=== PATIENT | female | born 1965 | race Caucasian/White ===

== ENCOUNTER 2021-04-12 08:36 | Day surgery (SDC) | payer BC ==
[2021-04-08 11:26] VITALS: BMI 39.8
[2021-04-12] MEDS ORDERED: LIDOCAINE HCL/PF 2% SDV 5ML VIAL ONE (10:51)
[2021-04-12] MEDS ORDERED: PROPOFOL 20 ML ONE ×3 (10:51)
[2021-04-12 11:44] VITALS: TEMP 98.3
[2021-04-12 11:46] VITALS: BP 124/82; PULSE 72
== END 2021-04-12 12:20 | disposition home or self-care (01) ==
LOC: FASU-ENDO 08:36
PROVIDERS: ATTEND Internal Medicine Gastroenterology
PROC: 0DB98ZX Excision of Duodenum, Via Natural or Artificial Opening Endoscopic, Diagnostic (ICD-10-PCS; 2021-04-12)
PROC: 0DB68ZX Excision of Stomach, Via Natural or Artificial Opening Endoscopic, Diagnostic (ICD-10-PCS; 2021-04-12)
PROC: 0DJD8ZZ Inspection of Lower Intestinal Tract, Via Natural or Artificial Opening Endoscopic (ICD-10-PCS; principal; 2021-04-12 10:43)
DX: Z12.11 Encounter for screening for malignant neoplasm of colon (principal); K57.30 Diverticulosis of large intestine without perforation or abscess without bleeding; K29.50 Unspecified chronic gastritis without bleeding; R12 Heartburn
CPT/HCPCS: 84703; 88305-TC; 88342-TC

== ENCOUNTER 2021-12-09 15:46 | Emergency (ER) | payer BC ==
[2021-12-09 16:37] VITALS: BP 151/98; PULSE 84; TEMP 97.8; BMI 38.7
[2021-12-09] MEDS ORDERED: KETOROLAC TROMETHAMINE 15 MG/ML VIAL IM ONE (20:32)
[2021-12-09] MEDS ORDERED: LIDOCAINE 5% TOPICAL PATCH TP ONE (20:35)
[2021-12-09] MEDS ORDERED: ACETAMINOPHEN 500 MG TABLET (FP) PO ONE (20:35)
[2021-12-09] MEDS ORDERED: LIDOCAINE 5% TOPICAL PATCH ONE (21:03)
[2021-12-09] MEDS ORDERED: KETOROLAC TROMETHAMINE 15 MG/ML VIAL ONE (21:03)
[2021-12-09] MEDS ORDERED: ACETAMINOPHEN 325 MG TABLET (FP) ONE (21:03)
[2021-12-09] MEDS ORDERED: LIDOCAINE PATCH REMOVAL MC ONE (22:00)
== END 2021-12-09 21:29 | disposition home or self-care (01) ==
LOC: JER 15:46
PROC: 3E0233Z Introduction of Anti-inflammatory into Muscle, Percutaneous Approach (ICD-10-PCS; principal; 2021-12-09)
DX: M54.50 Low back pain, unspecified (principal)
CPT/HCPCS: 99284-25

== ENCOUNTER 2022-04-25 11:29 | Emergency (ER) | payer BC ==
[2022-04-25 12:15] VITALS: BP 140/80; RESP 18; BMI 38.0
[2022-04-25] MEDS ORDERED: ACETAMINOPHEN 325 MG TABLET (FP) PO ONE (14:19)
[2022-04-25 14:49] VITALS: PULSE 88; TEMP 99.5
== END 2022-04-25 14:51 | disposition home or self-care (01) ==
LOC: JER 11:29
DX: R50.9 Fever, unspecified (principal)
CPT/HCPCS: 0241U-QW; 99281-25

== ENCOUNTER 2023-03-17 00:21 | Emergency (ER) | payer BC ==
[2023-03-17 00:29] VITALS: BP 143/89; PULSE 95; RESP 18; TEMP 98.9; BMI 38.6
[2023-03-17] MEDS ORDERED: predniSONE 20 MG TABLET (UD) ONE (00:51)
[2023-03-17] MEDS ORDERED: predniSONE 20 MG TABLET (UD) PO ONE (00:51)
[2023-03-17] MEDS: ALBUTEROL SO4 2.5/IPRATROPIUM 0.5 INH SOL 3 ML VIAL.NEB. NEB SCH ×2 (01:28→01:33)
== END 2023-03-17 02:57 | disposition home or self-care (01) ==
LOC: FER 00:21
PROC: 3E0F7GC Introduction of Other Therapeutic Substance into Respiratory Tract, Via Natural or Artificial Opening (ICD-10-PCS; principal; 2023-03-17)
DX: R05.9 Cough, unspecified (principal); R09.81 Nasal congestion; R06.2 Wheezing
CPT/HCPCS: 71045-TC-FY; 99283-25